=== PATIENT | female | born 1970 | race Caucasian/White ===

== ENCOUNTER → 2019-03-03 12:56 | Outpatient (CLI) | payer BC, SELFPAY ==
--- NOTE | 2019-03-03 13:14 | CT_ITS ---
PROCEDURE: CT SINUS WO/W CON CLINICAL HISTORY: PERIORBITAL CELLUTITS Left periorbital cellulitis. Cloudy vision, headache COMPARISON: No exams were available for comparison TECHNIQUE: 100 mL Optiray 320 performed in conjunction with the head CT Axial images obtained with sagittal and coronal reformats. All CT scans at the facility use one or more dose reduction, viz: automated exposure control, ma/kV adjustment per patient size (including targeted exams where dose is matched to indication, i.e. head), or iterative reconstruction technique. FINDINGS: There is soft tissue swelling in the left periorbital region. This appears to be confined to the preseptal area with no postseptal inflammation evident. No postseptal mass. No abscess. There is a small air-fluid level in the left maxillary sinus. No mastoid effusion. There is a lucent lesion within the left petrous bone laterally medial to the mastoid sinus. This measures approximately 11 mm. This is well-circumscribed and nonspecific. This may represent a cholesterol granuloma or cholesteatoma. No other significant anomalies are evident. There are scattered mildly prominent cervical lymph nodes which are nonspecific. No abscess is evident IMPRESSION: . 1. Left periorbital cellulitis. No postseptal abnormalities evident 2. 11 mm lucent lesion of the petrous apex on the left laterally which may be due to a cholesterol granuloma or cholesteatoma. Suggest 6 month MRI follow-up without and with contrast to confirm stability 3. Scattered mildly prominent cervical lymph nodes nonspecific. The nodes are less than 1.5 cm in short axis. Dictated by: Orlando Bonilla MD 03/03/2019 18:28 Electronically signed by Orlando Bonilla MD in [facility] 03/04/2019 09:59
--- NOTE | 2019-03-03 13:14 | CT_ITS ---
PROCEDURE: CT HEAD/BRAIN WO/W CON CLINICAL INDICATION: PERIORBITAL CELLULITIS Headache, left-sided visual problems, blurry vision COMPARISON: CT SINUS WO/W CON from 03/03/2019 TECHNIQUE: IV Contrast: 100ML OPITRAY 320 Axial images obtained with sagittal and coronal reformats. All CT scans at the facility use one or more dose reduction, viz: automated exposure control, ma/kV adjustment per patient size (including targeted exams where dose is matched to indication, i.e. head), or iterative reconstruction technique. FINDINGS: No midline shift, mass effect, intracranial hemorrhage, hydrocephalus, or extra-axial fluid collection is evident. No enhancing lesions are evident. The calvarium has an unremarkable appearance. No mastoid effusion or sinus air-fluid level there is mild left periorbital soft tissue swelling. Please see the maxillofacial CT report for further description. In the left petrous bone there is an 11 mm isodense lesion within the left petrous bone. Please see maxillofacial CT for further description IMPRESSION: 1. No acute intracranial findings. 2. Mild left periorbital cellulitis. 3. Left petrous bone lesion. See maxillofacial CT for further description Dictated by: Orlando Bonilla MD 03/03/2019 18:28 Electronically signed by Orlando Bonilla MD in [facility] 03/04/2019 09:50
== END ==
PROVIDERS: PCP Internal Medicine Adolescent Medicine; Visit Provider Nurse Practitioner Family
DX: L03.213 Periorbital cellulitis (principal)
CPT/HCPCS: 70470; 70488

== ENCOUNTER → 2020-04-06 09:54 | Outpatient (CLI) | payer BC, SELFPAY ==
--- NOTE | 2020-04-06 09:58 | MM_ITS ---
PROCEDURE: MM DIG SCREENING MAMM BI W/CAD Digital Breast Tomosynthesis Included CLINICAL INDICATION: SCREENING There is no personal or family history of breast cancer. COMPARISON: This is a baseline screening exam, patient without complaints TECHNIQUE: Standard CC and MLO images and 3D Tomosynthesis was obtained. R2 CAD reviewed. FINDINGS: Mild to moderate scattered fibroglandular densities are seen throughout both breasts and the findings of bilateral and symmetrical. There is no suspicious lesion in either breast and no suspicious microcalcifications. IMPRESSION: Fibrofatty parenchyma with no suspicious lesions seen BI-RAD Category: 1 Negative FOLLOW-UP: 1YR 1 Year Follow-up (A letter has been sent to the patient regarding results of the study.) Dictated by: Dr. Vince Martins MD 04/11/2020 08:44 Dr. Vince Martins MD in [facility] 04/11/2020 08:44
== END ==
PROVIDERS: PCP Internal Medicine Adolescent Medicine; Visit Provider Nurse Practitioner Family
DX: Z12.31 Encounter for screening mammogram for malignant neoplasm of breast (principal)
CPT/HCPCS: 77063; 77067

== ENCOUNTER 2024-12-10 13:31 | Outpatient (CLI) | payer BC, SELFPAY ==
--- NOTE | 2024-12-10 13:40 | XR_ITS ---
PROCEDURE INFORMATION: Exam: XR Right Knee Exam date and time: 12/10/2024 1:44 PM Age: 54 years old Clinical indication: Injury or trauma; Fall; Blunt trauma; Knee; Right; Additional info: Pain TECHNIQUE: Imaging protocol: Radiologic exam of the right knee. Views: 3 views. COMPARISON: No relevant prior studies available. FINDINGS: Bones/joints: Severe Tricompartmental joint space narrowing and osteophyte formation consistent with degenerative changes. Joint space narrowing most evident in the medial compartment. There is no evidence of acute fracture.There is no evidence of malalignment or dislocation. Soft tissues: Normal. IMPRESSION: 1. Severe Tricompartmental joint space narrowing and osteophyte formation consistent with degenerative changes. Joint space narrowing most evident in the medial compartment. 2. There is no evidence of acute fracture.There is no evidence of malalignment or dislocation.
--- NOTE | 2024-12-10 13:40 | XR_ITS ---
PROCEDURE INFORMATION: Exam: XR Left Knee Exam date and time: 12/10/2024 1:44 PM Age: 54 years old Clinical indication: Injury or trauma; Fall; Blunt trauma; Knee; Left; Additional info: Pain that radiates down leg. Fall TECHNIQUE: Imaging protocol: Radiologic exam of the left knee. Views: 3 views. COMPARISON: No relevant prior studies available. FINDINGS: Bones/joints: Moderate Tricompartmental joint space narrowing and osteophyte formation consistent with degenerative changes. Joint space narrowing most evident in the medial compartment.. There is no evidence of acute fracture.There is no evidence of malalignment or dislocation. Soft tissues: Normal. IMPRESSION: 1. Moderate Tricompartmental joint space narrowing and osteophyte formation consistent with degenerative changes. Joint space narrowing most evident in the medial compartment.. 2. There is no evidence of acute fracture.There is no evidence of malalignment or dislocation.
== END 2024-12-10 23:59 | disposition home or self-care (01) ==
LOC: RAD 13:33
PROVIDERS: PCP Nurse Practitioner Family; Visit Provider Nurse Practitioner Family
DX: M25.862 Other specified joint disorders, left knee (principal); M25.861 Other specified joint disorders, right knee; M25.762 Osteophyte, left knee; M25.761 Osteophyte, right knee; T14.90XA Injury, unspecified, initial encounter; W19.XXXA Unspecified fall, initial encounter
CPT/HCPCS: 73562